=== PATIENT | female | born 1985 | race Two or more races ===

== ENCOUNTER 2024-09-15 13:30 | Outpatient (RCR) | payer MEDICAID, SELFPAY ==
--- NOTE | 2024-09-07 13:37 | PT.OIERPT ---
PT OP Initial Eval Patient Information Outpatient Physical Therapy Treatment Date: 09/07/24 Visit Reasons: PAIN IN RT ANKLE/FOOT Medical Diagnosis: M25.571 Treatment Dx #1: R ankle pain Treatment Dx #2: R foot pain Start of Care: 09/07/24 Date of Onset: April 2024 Smoking Status Smoking Status: Never smoker Initial Assessment Subjective: Pt is 38 yr old east timorese speaking female who c/o R ankle and heel pain x4 months. Increased pain with prolonged standing and walking >5-10 mins. 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 PMH: Imaging: X-rays with provider Pt goal: to get rid of the pain so she can stand and walk to work Objective: R ankle AROM: DF: neutral PF: 45 deg Inversion: 20 deg Eversion: 15 deg Heel raise: unable TTP: moderate/high of medial foot and ankle and calcaneus plantar aspect Gait: antalgic Assessment: Pt presents with medial ankle and foot pain consistent with posterior tibialis tendinopathy and heel pain consistent with calcaneal spur. Pt may benefit from skilled therapy to meet goals and has fair rehab potential. Short Term and [facility] Goals 1. Ind with HEP 2. Improved PF to 55 deg 3. Improved standing tolerance to at least 20 mins with <=3/10 pain 4. Decreased TTP of foot from high to min Treatment Plan ? 1. Manual therapy ? 2. Therex ? 3. Modalities as indicated, moist heat, ice, estim Frequency and Duration: 2x a week for 4 sessions plus the evaluation Certification Dates: 09/07/24 to 12/06/24 Procedure Charges OP PT Eval Mod Complex 30 minutes: Yes
--- NOTE | 2024-09-15 14:44 | PT.ODAYNRPT ---
PT Outpatient Daily Note OP Daily Note Outpatient Physical Therapy Treatment Date: 09/15/24 Visit Reasons: PAIN IN RT ANKLE/FOOT Subjective: Same as time of evaluation Objective: See F/S for therex MT: STM R ankle and foot x7 Assessment: Mod/high TTP of distal Achilles, lateral ankle and plantar calcaneus consistent with Achilles tendinopathy. Plan: Continue per POC Length of Time (minutes) of Treatment: 30 Minutes Procedure Charges Therapeutic Exercise 30 minutes: Yes
== END 2024-09-16 23:59 | disposition home or self-care (01) ==
LOC: CPTX 13:30
PROVIDERS: PCP Registered Nurse General Practice; Referring Provider Registered Nurse General Practice; Visit Provider Registered Nurse General Practice
DX: M25.571 Pain in right ankle and joints of right foot (principal)
CPT/HCPCS: 97110; 97162

== ENCOUNTER 2024-09-29 15:02 | Outpatient (RCR) | payer MEDICAID, SELFPAY ==
--- NOTE | 2024-09-29 16:21 | PT.ODAYNRPT ---
PT Outpatient Daily Note OP Daily Note Outpatient Physical Therapy Treatment Date: 09/29/24 Visit Reasons: Pain in RT ankle/foot Subjective: No new complaints or concerns. Objective: Please see flow sheet for ther ex list. Assessment: Added interventions completed with good tolerance. Plan: Continue with poC. Length of Time (minutes) of Treatment: 30 Minutes Procedure Charges Therapeutic Exercise 30 minutes: Yes
== END 2024-10-17 23:59 | disposition home or self-care (01) ==
LOC: CPTX 15:02
PROVIDERS: PCP Registered Nurse General Practice; Referring Provider Registered Nurse General Practice; Visit Provider Registered Nurse General Practice
DX: M25.571 Pain in right ankle and joints of right foot (principal)
CPT/HCPCS: 97110

== ENCOUNTER → 2025-01-19 | Outpatient (CLI) | payer MEDICAID, SELFPAY ==
--- NOTE | 2025-01-19 15:45 | XR_ITS ---
Examination: MRI right lower, without contrast Date and time of exam: January 19, 2025 1812 hrs. Indications: Patient slipped and fell March 2024 with injury to the ankle, ankle pain, diagnosis posterior tibial tendinitis plantar fascial fibromatosis Technique: Multiple axial sagittal and coronal images of the right ankle have been obtained with the Siemens high-resolution 1.5 Ena MRI scanner. Images obtained include T2-weighted fat-suppressed sagittal sections, TR 3500, TE 46, T2 weighted coronal fat suppressed images, TR 3050, TE 84, T2-weighted transverse fat suppressed images, TR 3260, TE 63, proton density transverse images, TR 4720 TE 46, and T1 weighted coronal images, TR 560, TE 13. Findings: No occult fracture or bone contusion Mild biconvex thickening of the Achilles tendon. Mild plantar fasciitis. Negative for sinus Tarsi syndrome 17 x 18 mm benign cyst at the base of the third metatarsal Dome the talus intact Anterior posterior inferior tibiofibular ligaments intact Talar fibular ligaments intact Tendinitis posterior tibial flexor digitorum and flexor hallucis longus tendons Extensor tendons intact Impression: No occult fracture Mild Achilles tendinosis Mild plantar fasciitis Tendinitis posterior tibial, flexor digitorum and flexor hallucis longus tendons
== END | disposition home or self-care (01) ==
LOC: SMRI 16:29
PROVIDERS: PCP Podiatrist; Referring Provider Podiatrist; Visit Provider Podiatrist
DX: M76.821 Posterior tibial tendinitis, right leg (principal); M72.2 Plantar fascial fibromatosis; M76.61 Achilles tendinitis, right leg
CPT/HCPCS: 73721